=== PATIENT | female | born 1980 | race African-American/Black ===

== ENCOUNTER 2016-08-31 11:05 | Emergency (ER) | payer MEDICAID ==
[~2016-08-31] VITALS: Ht 165.1 cm; Wt 115.2 kg
[2016-08-31] MEDS ORDERED: NKM (11:27)
[2016-08-31 12:24] LABS: APPEARANCE,URINE CLEAR; KETONES,URINE NEGATIVE (NEGATIVE); LEUKOCYTE ESTERASE ,URINE NEGATIVE (NEGATIVE); NITRITE,URINE NEGATIVE (NEGATIVE); PH,URINE 6 (4.5-8.0); PROTEIN,URINE NEGATIVE (NEGATIVE); UROBILINOGEN,URINE NORMAL MG/DL (0.0-1.0)
[2016-08-31] MEDS ORDERED: METROGEL-VAGINA70 G1 VAGIN (12:54)
[2016-08-31 13:05] VITALS: BP 156/92
--- NOTE | 2016-08-31 13:52 | Emergency Room Report ---
History of Present Illness General Chief Complaint: Female Urogenital Problems Source: Patient Present Illness HPI The patient is a 36-year-old female who presented after having increased foul odor. Patient had gradual onset of symptoms. The patient reports having worsening symptoms over the past 2 days. The patient denied being . She denied severe vaginal discharge or abdominal pain. Patient reported having some mild dysuria. Allergies: Coded Allergies: No Known Allergies (Unverified , 08/31/16) Patient History Last Menstrual Period: 08/30/2016 Reviewed Nursing Documentation: PMH: Agreed, PSxH: Agreed Nursing Documentation-PMH Past Medical History: No Stated History Physical Exam Vital Signs Date Time Temp Pulse Resp B/P Pulse Ox O2 Delivery O2 Flow Rate FiO2 08/31/16 11:22 98.1 98 14 156/84 98 Room Air General Appearance: well appearing, no apparent distress, alert, GCS 15, obese Head: normocephalic, atraumatic ENT: hearing grossly normal, normal voice Neck: full range of motion, supple Respiratory: no respiratory distress, speaking full sentences Cardiovascular #1: normal peripheral pulses, no edema Gastrointestinal: normal inspection Genitourinary: ext genitalia/vag normal, other - fishy odor. Musculoskeletal: no calf tenderness Neurologic: normal inspection, alert, oriented x3, responsive, normal gait Psychiatric: mood/affect normal Skin: no rash Medical Decision Making Diagnostic Impression: Primary Impression: Bacterial vaginosis ER Course Patient presented for vaginal discharge. The patient presented for vaginal discharge. Differential diagnosis included was not limited to a yeast infection , physiologic discharge, bacterial vaginosis, gonorrhea, Chlamydia, among others. The patient presented exam consistent with bacterial vaginosis. Patient was given prescription for metronidazole gel. Patient was advised followup with her [employer]. Urine test and urinalysis were normal and showed no evidence of infection. Last Vital Signs Date Time Temp Pulse Resp B/P Pulse Ox O2 Delivery O2 Flow Rate FiO2 08/31/16 13:05 86 16 156/92 100 Room Air 08/31/16 13:05 98.0 Status: improved Disposition: HOME, SELF-CARE Condition: Stable Scripts Metronidazole* (METROGEL-VAGINAL*) 70 Gm Gel.w.appl 1 APPL VAGIN EVERY 12 HOURS for 7 Days, #70 GM Prov: Kumar Clifton 08/31/16 Patient Instructions: Bacterial Vaginosis Kumar Clifton Aug 31, 2016 13:52
== END 2016-08-31 13:07 | disposition home or self-care (01) ==
LOC: EMR 11:35
DX: N76.0 Acute vaginitis (principal); B96.89 Other specified bacterial agents as the cause of diseases classified elsewhere
CPT/HCPCS: 81003; 81025; 99283

== ENCOUNTER 2017-02-19 16:10 | Emergency (ER) | payer MEDICAID ==
[~2017-02-19] VITALS: Ht 165.1 cm; Wt 90.7 kg
[~2017-02-19 16:10] MED LIST: METROGEL-VAGINA70 G1 VAGIN; NKM
[2017-02-19 16:18] VITALS: BP 140/85
[2017-02-19] MEDS ORDERED: Bacitracin Oint UD TOPIC ONE (16:30)
[2017-02-19] MEDS ORDERED: IBUPROFEN600 MG ORAL (16:43)
[2017-02-19] MEDS ORDERED: AUGMENTIN 500-1 EACH ORAL (16:43)
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
== END 2017-02-19 16:42 | disposition home or self-care (01) ==
LOC: EMR 16:32
DX: S01.152A Open bite of left eyelid and periocular area, initial encounter (principal); W50.3XXA Accidental bite by another person, initial encounter; Y93.9 Activity, unspecified; Y92.9 Unspecified place or not applicable
CPT/HCPCS: 99283